=== PATIENT | female | born 1940 | race Caucasian/White ===

== ENCOUNTER 2017-07-29 10:15 | Observation (INO) | payer MEDICARE, OTHER ==
[~2017-07-29] VITALS: Ht 152.4 cm; Wt 74.9 kg
[~2017-07-29 10:15] MED LIST: AUGMENTIN 500 M1 TAB PO; PRILOSEC20 M1 PO; PRINIVIL10 MG PO; PRINZIDE 12.5 M1 TAB PO; SEE LIST; SIMVASTATIN5 MG PO; ZOCOR 20MG20 MG PO
[2017-07-29 13:20] VITALS: BP 172/66; PULSE 83; TEMP 98.3
[2017-07-29 15:38] VITALS: BP 146/63; PULSE 88; TEMP 97.7
[2017-07-29 21:14] VITALS: BP 133/55; PULSE 75
[2017-07-29 23:55] VITALS: BP 159/58; PULSE 80; TEMP 98
[2017-07-30 07:58] VITALS: BP 146/64; PULSE 80; TEMP 98.6
[2017-07-30 12:58] VITALS: BP 127/54; PULSE 62; TEMP 97.6
[2017-07-30 16:22] VITALS: BP 129/63; PULSE 61; TEMP 97.6
[2017-07-30 20:55] VITALS: BP 138/54; PULSE 57; TEMP 98
[2017-07-31 01:01] VITALS: BP 151/70; PULSE 76; TEMP 98.2
[2017-07-31 03:39] VITALS: BP 171/81; PULSE 83; TEMP 98.1
[2017-07-31 07:37] VITALS: BP 178/72; PULSE 71; TEMP 97.5
[2017-07-31] MEDS ORDERED: FLEXERIL 1010 MG/TAB PO (10:48)
[2017-07-31] MEDS ORDERED: ULTRAM 50MG TAB50 MG PO (10:49)
== END 2017-07-31 12:01 | disposition home or self-care (01) ==
LOC: COL.ER 10:15 → MEDICAL 12:17
DX: M54.89 Other dorsalgia (principal); I10 Essential (primary) hypertension; K21.9 Gastro-esophageal reflux disease without esophagitis
CPT/HCPCS: 99239; G0378; G8978-GP; G8979-GP; G8987-GO; G8988-GO; J1650; J1885; J2060; J2270; J2405; J7030; J7040

== ENCOUNTER 2019-01-17 18:02 | Emergency (ER) | payer MEDICARE, OTHER ==
[~2019-01-17] VITALS: Ht 152.4 cm; Wt 77.3 kg
[~2019-01-17 18:02] MED LIST changes: +FLEXERIL 1010 MG/TAB PO; +ULTRAM 50MG TAB50 MG PO
[2019-01-17 18:04] VITALS: TEMP 98.5
[2019-01-17] MEDS ORDERED: XALATAN EYE DROPS OU (18:32)
[2019-01-17 18:33] LABS: BASO % 0.4 % (0.0-2.0); EOS % 0.1 % (0-4.0); GRAN % 78.2 % (42.2-75.2); HEMATOCRIT 42.4 % (37.0-47.0); HEMOGLOBIN 14.3 g/dl (12.5-16.0); LYMPH # 1.2 (1.2-3.4); LYMPH % 13.4 % (20.0-51.0); MEAN CELL VOLUME 86 fl (80.0-100.0); MEAN CORPUSCULAR HEMOGLOBIN 29 pg (27.0-31.0); MEAN CORPUSCULAR HGB CONC 34 g/dl (33.0-37.0); MEAN PLATELET VOLUME 9.6 fl (7.4-10.4); MONO # 0.7 (0.1-0.6); MONO % 7.6 % (1.7-9.3); PLATELET COUNT 240 K/mm3 (130-400); RED BLOOD COUNT 4.91 M/mm3 (4.10-5.30); REDCELL DISTRIBUTION WIDTH-CV 12.5 % (11.5-14.5)
[2019-01-17] MEDS ORDERED: TIMOLOL MALEATE5 M1 OP (18:33)
[2019-01-17 18:51] LABS: ALANINE AMINOTRANSFERASE 18 U/L (9-52); ALBUMIN 4.3 gm/dL (3.5-5.0); ALKALINE PHOSPHATASE 107 U/L (50-136); ANION GAP 7 mmol/L (7-16); AST,SGOT 19 U/L (15-37); BILIRUBIN,TOTAL 0.9 mg/dL (0.0-1.0); BLOOD UREA NITROGEN 8 mg/dL (7-17); C-REACTIVE PROTEIN 3.2 mg/dL (0.0-0.9); CARBON DIOXIDE 28 mmol/L (22-30); CHLORIDE 100 mmol/L (98-107); CREATININE, serum 0.52 (0.52-1.25); GLUCOSE 139 mg/dL (74-106); LIPASE 69 U/L (23-300); POTASSIUM 3.5 mmol/L (3.4-5.0); SODIUM 136 mmol/L (137-145); TOTAL PROTEIN 7.8 gm/dL (6.4-8.2)
[2019-01-17 19:01] LABS: COLLECTION METHOD CLEAN CATCH
[2019-01-17 19:03] LABS: TROPONIN-I < 0.012 ng/mL (0.000-0.035)
[2019-01-17 19:09] LABS: PH 5 (5-8); SQUAMOUS EPITHELIAL 0-2 /hpf; URINE APPEARANCE Hazy; URINE BACTERIA None Seen /hpf; URINE BILIRUBIN Negative (NEGATIVE); URINE BLOOD 1+ (NEGATIVE); URINE COLOR Yellow; URINE GLUCOSE Negative (NEGATIVE); URINE KETONE Trace (NEGATIVE); URINE LEUKOCYTE ESTERASE Negative (NEGATIVE); URINE NITRATE Negative (NEGATIVE); URINE PROTEIN(semi-quant) Negative (NEGATIVE); URINE RBC 0-2 /hpf; URINE UROBILINOGEN Negative (NEGATIVE)
[2019-01-17 19:30] VITALS: BP 176/86
[2019-01-17] MEDS ORDERED: NORVASC 5MG5 MG/TAB PO (20:10)
[2019-01-17] MEDS ORDERED: ZOFRAN 4MG T4 MG/TAB PO (20:10)
[2019-01-17 20:20] VITALS: PULSE 94
== END 2019-01-17 20:20 | disposition home or self-care (01) ==
LOC: COL.ER 18:02
PROVIDERS: Emergency Medicine
DX: R19.7 Diarrhea, unspecified (principal); R11.2 Nausea with vomiting, unspecified; I10 Essential (primary) hypertension
CPT/HCPCS: J2405; J7030

== ENCOUNTER 2019-02-19 12:05 | Observation (INO) | payer MEDICARE, OTHER ==
[~2019-02-19] VITALS: Ht 149.9 cm; Wt 77.2 kg
[~2019-02-19 12:05] MED LIST changes: +NORVASC 5MG5 MG/TAB PO; +TIMOLOL MALEATE5 M1 OP; +XALATAN EYE DROPS OU; +ZOFRAN 4MG T4 MG/TAB PO
[2019-02-19 12:54] LABS: ALANINE AMINOTRANSFERASE < 6 U/L (9-52); ALBUMIN 4.3 gm/dL (3.5-5.0); ALKALINE PHOSPHATASE 100 U/L (50-136); ANION GAP 11 mmol/L (7-16); AST,SGOT 26 U/L (15-37); BASO % 0.5 % (0.0-2.0); BILIRUBIN,TOTAL 0.8 mg/dL (0.0-1.0); BLOOD UREA NITROGEN 10 mg/dL (7-17); CALCIUM 9.2 mg/dL (8.4-10.2); CARBON DIOXIDE 28 mmol/L (22-30); CHLORIDE 102 mmol/L (98-107); CREATININE, serum 0.51 (0.52-1.25); EOS % 0.4 % (0-4.0); GLUCOSE 145 mg/dL (74-106); GRAN # 6.3 (1.4-6.5); GRAN % 73.5 % (42.2-75.2); HEMATOCRIT 38.5 % (37.0-47.0); HEMOGLOBIN 13.1 g/dl (12.5-16.0); LIPASE 78 U/L (23-300); LYMPH # 1.5 (1.2-3.4); LYMPH % 17.8 % (20.0-51.0); MEAN CELL VOLUME 86 fl (80.0-100.0); MEAN CORPUSCULAR HEMOGLOBIN 29 pg (27.0-31.0); MEAN CORPUSCULAR HGB CONC 34 g/dl (33.0-37.0); MEAN PLATELET VOLUME 9.8 fl (7.4-10.4); MONO # 0.7 (0.1-0.6); MONO % 7.6 % (1.7-9.3); PLATELET COUNT 230 K/mm3 (130-400); POTASSIUM 3.6 mmol/L (3.4-5.0); REDCELL DISTRIBUTION WIDTH-CV 12.5 % (11.5-14.5); SODIUM 141 mmol/L (137-145); TOTAL PROTEIN 7.8 gm/dL (6.4-8.2)
[2019-02-19 13:06] LABS: INR 1.1 (0.8-3.0); PROTHROMBIN TIME 12.5 SECONDS (9.7-12.8)
[2019-02-19 13:08] LABS: TROPONIN-I < 0.012 ng/mL (0.000-0.035)
[2019-02-19 17:41] VITALS: BP 158/71; PULSE 81; TEMP 98.3
--- NOTE | 2019-02-19 18:29 | NUR ---
Pt arrived to room 305 at this time. She is A/O x3. Her breathing is even and unlabored on RA. Pt denies chest pain or palpations at this time. She reports her headache has improved. No N/V present. Tele monitor in place. Family at bedside, POC discussed with patient who verbalizes understanding. IV to her R hand intact. No needs at this time. Call light within reach. Will continue to monitor.
[2019-02-19 19:02] VITALS: BP 148/67; PULSE 84; TEMP 98.5
--- NOTE | 2019-02-19 21:19 | NUR ---
Completed assessment and medication adminsitration; PT tolerated all cares and questions; PT A&Ox4, BS active x4, HRRR, IND AMB stable in room, voiding, observation with trending triponins; No further assessed concerns or complaints at time of exit; PT able to return to comfortable position in bed with personal items and call light within reach; Will continue to monitor. CDA
[2019-02-19 23:13] VITALS: BP 153/66; PULSE 85; TEMP 98.6
--- NOTE | 2019-02-20 02:00 | NUR ---
PT resting intermittently in bed; PT states that the bed is not comfortable; No further assessed or reported needs; No report of acute chest pain or discomfort; Will continue to monitor. CDA
[2019-02-20 03:16] VITALS: BP 149/67; PULSE 77; TEMP 99
--- NOTE | 2019-02-20 07:15 | NUR ---
Report given to YOSI Pool; No significant changes or concerns at time of shift change. CDA
[2019-02-20 07:26] VITALS: BP 142/62; PULSE 82; TEMP 98.4
--- NOTE | 2019-02-20 07:27 | NUR ---
Up walking in the room while rounding. No pain or needs reported. The call light is in place and the patient is ordering breakfast.
--- NOTE | 2019-02-20 07:29 | NUR ---
Report received from YOSI Gomez. Rounded on pt. Pt is currently sitting on the side of the bed. No complaints or requests at this time. Pt is planning on ordering breakfast. Call light in reach. Will continue to monitor.
[2019-02-20 08:15] LABS: BASO # 0.1 (0.0-0.2); BASO % 0.8 % (0.0-2.0); EOS # 0.1 (0.0-0.7); EOS % 0.8 % (0-4.0); GRAN # 4.8 (1.4-6.5); GRAN % 62.1 % (42.2-75.2); HEMATOCRIT 38.9 % (37.0-47.0); HEMOGLOBIN 12.7 g/dl (12.5-16.0); LYMPH # 2.1 (1.2-3.4); LYMPH % 27.5 % (20.0-51.0); MEAN CELL VOLUME 88 fl (80.0-100.0); MEAN CORPUSCULAR HEMOGLOBIN 29 pg (27.0-31.0); MEAN CORPUSCULAR HGB CONC 33 g/dl (33.0-37.0); MEAN PLATELET VOLUME 9.6 fl (7.4-10.4); MONO # 0.7 (0.1-0.6); MONO % 8.5 % (1.7-9.3); PLATELET COUNT 229 K/mm3 (130-400); RED BLOOD COUNT 4.44 M/mm3 (4.10-5.30); REDCELL DISTRIBUTION WIDTH-CV 12.5 % (11.5-14.5)
[2019-02-20 08:46] LABS: CALCIUM 9.1 mg/dL (8.4-10.2); CHOLESTEROL RISK RATIO 6.9; CREATININE, serum 0.55 (0.52-1.25); POTASSIUM 3.7 mmol/L (3.4-5.0)
--- NOTE | 2019-02-20 09:57 | NUR ---
This nurse reduced patients O2 to 1L via NC.
--- NOTE | 2019-02-20 10:32 | NUR ---
QUE met with the patient to discuss a discharge plan. The patient lives alone in [place]. The patient does not use any DME and reports independence with ADLs. The patient's PCP is Dr. Chloe Pizarro and the patient receives her medication from [facility] pharmacy. The patient reports no difficulties obtaining her medications. The patient does not have advanced directives in the EMR but reports that she does have them completed. The patient plans to return home upon discharge. There are no additional needs at this time.
[2019-02-20 11:03] VITALS: BP 142/65; PULSE 75; TEMP 98.1
--- NOTE | 2019-02-20 11:15 | NUR ---
Visited, listened, and provided spiritual care to the patient.
[2019-02-20 12:07] LABS: ARTERIAL BLOOD GAS HCO3 27.7 meq/L (22-26); ARTERIAL BLOOD GAS PCO2 39.8 mmHg (35-45); ARTERIAL BLOOD GAS PO2 78.5 mmHg (80-100); ARTERIAL BLOOD GAS pH 7.46 (7.35-7.45)
[2019-02-20 12:08] LABS: ARTERIAL BLD GAS O2 SATURATION 95.4 % (92-100); ARTERIAL BLD GAS TCO2 CT 29; ARTERIAL BLOOD GAS BASE EXCESS 3.7 (-2-2)
[2019-02-20] MEDS ORDERED: PRILOSEC10 MG PO (12:19)
--- NOTE | 2019-02-20 13:00 | NUR ---
This nurse reduced patients O2 to 0 L
[2019-02-20] MEDS ORDERED: ASPI325T6 PO (15:10)
[2019-02-20] MEDS ORDERED: TOPROL XL 50MG50 MG PO (15:11)
--- NOTE | 2019-02-20 16:21 | NUR ---
Discharge education completed with the patient and her daughter. All questions answered per this nurse. Escorted out via wheelchair.
== END 2019-02-20 16:24 | disposition home or self-care (01) ==
LOC: COL.ER 12:05 → PEDS 14:57 → MEDICAL 17:39
PROVIDERS: Emergency Medicine; Nurse Practitioner Family; ADMIT Family Medicine
DX: R07.89 Other chest pain (principal); I16.0 Hypertensive urgency; R73.03 Prediabetes; E78.5 Hyperlipidemia, unspecified; M19.90 Unspecified osteoarthritis, unspecified site; G89.29 Other chronic pain; M54.5 Low back pain; Z79.82 Long term (current) use of aspirin; Z82.49 Family history of ischemic heart disease and other diseases of the circulatory system; Z82.3 Family history of stroke; Z88.1 Allergy status to other antibiotic agents; Z88.8 Allergy status to other drugs, medicaments and biological substances; Z91.018 Allergy to other foods; I08.1 Rheumatic disorders of both mitral and tricuspid valves
CPT/HCPCS: 99222-AI; 99239; G0378; J1650; J2270; J7030; Q9967

== ENCOUNTER 2021-11-01 09:05 | Outpatient (CLI) | payer MEDICARE, OTHER ==
[~2021-11-01] VITALS: Ht 149.9 cm; Wt 73.0 kg
[~2021-11-01 09:05] MED LIST changes: +ASPI325T6 PO; +PRILOSEC10 MG PO; +TOPROL XL 50MG50 MG PO
[2021-11-01 09:47] VITALS: BP 193/104; PULSE 83; TEMP 98.3
[2021-11-01] MEDS ORDERED: ASPIRIN E.C. 8181 MG PO (10:04)
[2021-11-01] MEDS ORDERED: CURCUMIN95% PO (10:05)
[2021-11-01] MEDS ORDERED: TIMOLOL MALEATE5 M1 OP (10:06)
[2021-11-01] MEDS ORDERED: B-12 250 MCG PO (10:07)
[2021-11-01] MEDS ORDERED: THE MEDICINE S200 M2 PO (10:07)
[2021-11-01] MEDS ORDERED: VITAMINC1000TA PO (10:08)
[2021-11-01] MEDS ORDERED: MASON NATURAL2000 IU PO (10:08)
[2021-11-01] MEDS ORDERED: ZETIA 10MG TAB10 MG PO (10:10)
[2021-11-01] MEDS ORDERED: ZESTRIL40 MG PO (10:11)
[2021-11-01] MEDS ORDERED: NATURAL POTASS595 MG PO (10:11)
[2021-11-01] MEDS ORDERED: NATURAL E400 IU PO ×2 (10:11→10:13)
[2021-11-01] MEDS ORDERED: MOTRIN 200200 MG/TAB PO (10:12)
[2021-11-01] MEDS ORDERED: ZANAFLEX CAPSULE2 MG PO (10:13)
[2021-11-01 10:55] VITALS: BP 176/84; PULSE 83
--- NOTE | 2021-11-01 10:55 | NUR ---
DC instructions reviewed with pt, she expressed understanding. Dressing to loop insert site remains clean, dry and intact. She is assisted out to family's car by wheelchair with belongings.
== END 2021-11-01 10:53 | disposition home or self-care (01) ==
LOC: COL.CAR 09:05
DX: R00.2 Palpitations (principal); I10 Essential (primary) hypertension; M19.90 Unspecified osteoarthritis, unspecified site; E78.5 Hyperlipidemia, unspecified; R73.01 Impaired fasting glucose; K21.9 Gastro-esophageal reflux disease without esophagitis; I08.1 Rheumatic disorders of both mitral and tricuspid valves; N39.0 Urinary tract infection, site not specified; E78.2 Mixed hyperlipidemia; H34.8110 Central retinal vein occlusion, right eye, with macular edema; Z98.51 Tubal ligation status; Z79.82 Long term (current) use of aspirin; Z79.899 Other long term (current) drug therapy; Z82.3 Family history of stroke
CPT/HCPCS: 27886; C1764

== ENCOUNTER 2022-02-02 07:57 | Emergency (ER) | payer MEDICARE ==
[~2022-02-02] VITALS: Ht 149.9 cm; Wt 71.8 kg
[~2022-02-02 07:57] MED LIST changes: +ASPIRIN E.C. 8181 MG PO; +B-12 250 MCG PO; +B-12 500 MCG PO; +CURCUMIN95% PO; +FOLIC ACID0.4 MG PO; +IFEREX 150150 MG PO; +MASON NATURAL2000 IU PO; +MOTRIN 200200 MG/TAB PO; +NATURAL E400 IU PO; +NATURAL POTASS595 MG PO; +THE MEDICINE S200 M2 PO; +VITAMIN C500 MG PO; +VITAMINC1000TA PO; +VTAMINC250TA; +ZANAFLEX CAPSULE2 MG PO; +ZESTRIL40 MG PO; +ZETIA 10MG TAB10 MG PO
[2022-02-02 08:00] VITALS: TEMP 98.5
[2022-02-02 08:48] VITALS: BP 163/78; PULSE 84
--- NOTE | 2022-02-02 15:47 | NUR ---
SW informed that patient was in ED and stated that she now felt as though she needed rehab after the surgery she previously had a few days ago. SW reviewed documentation to see when patient discharge and was services were recommended at that time. SW discovered that patient did not have surgery at [facility], but at the surgical center. Patient called to provide information on HH services that could be utilized privately paid, or reaching to the surgical center staff on Friday to obtain further documentation or information to be able to obtain further therapy services. Patient informed that due to not being admitted/discharged at this facility a physican ref. could not be provided. Patient and family understood that they would need to reach out to HH agencies, PCP or surgical center for follow up. Nothing further.
[2022-02-02] MEDS ORDERED: APRESOLINE50 MG PO (21:56)
[2022-02-02] MEDS ORDERED: NORCO 325 MG-51 TAB PO (21:57)
[2022-02-02] MEDS ORDERED: COREG 6.256.25 MG/TA PO (21:58)
[2022-02-02] MEDS ORDERED: PRILOSEC10 MG PO (22:05)
== END 2022-02-02 08:55 | disposition home or self-care (01) ==
LOC: COL.ER 07:57
DX: M62.838 Other muscle spasm (principal); Z79.899 Other long term (current) drug therapy

== ENCOUNTER 2022-02-02 21:26 | Observation (INO) | payer MEDICARE ==
[~2022-02-02] VITALS: Ht 151.1 cm; Wt 75.7 kg
[2022-02-02 21:49] LABS: BASO % 0.5 % (0.0-2.0); EOS # 0.1 K/mm3 (0.0-0.7); EOS % 1.1 % (0.0-4.0); GRAN # 5.7 K/mm3 (1.4-6.5); HEMOGLOBIN 10.5 g/dl (12.5-16.0); LYMPH % 22.7 % (20.0-51.0); MEAN CELL VOLUME 84 fl (80.0-100.0); MEAN CORPUSCULAR HEMOGLOBIN 29 pg (27-31); MEAN CORPUSCULAR HGB CONC 35 g/dl (33.0-37.0); MEAN PLATELET VOLUME 10.2 fl (7.4-10.4); MONO # 0.9 K/mm3 (0.1-0.6); MONO % 10.4 % (1.7-9.3); PLATELET COUNT 229 K/mm3 (130-400); REDCELL DISTRIBUTION WIDTH-CV 12.4 % (11.5-14.5)
[2022-02-02 21:53] LABS: HEMATOCRIT 30.3 % (37.0-47.0)
[2022-02-02] MEDS ORDERED: APRESOLINE50 MG PO (21:56)
[2022-02-02] MEDS ORDERED: NORCO 325 MG-51 TAB PO (21:57)
[2022-02-02] MEDS ORDERED: COREG 6.256.25 MG/TA PO (21:58)
[2022-02-02] MEDS ORDERED: PRILOSEC10 MG PO (22:05)
[2022-02-02 22:07] LABS: ALBUMIN 3.2 gm/dL (3.4-4.8); BILIRUBIN,TOTAL 0.6 mg/dL (0.2-1.2); C-REACTIVE PROTEIN 14.6 mg/dL (0.00-0.50); CALCIUM 8.5 mg/dL (8.4-10.2); CREATININE, serum 0.76 mg/dL (0.57-1.11); POTASSIUM 3.6 mmol/L (3.5-4.5); TOTAL PROTEIN 6.6 gm/dL (6.2-8.1)
[2022-02-02 22:29] LABS: COLLECTION METHOD CLEAN CATCH
[2022-02-02 22:34] LABS: PH 6 (5-8); SQUAMOUS EPITHELIAL 0-2 /hpf (0-10); URINE APPEARANCE Clear (CLEAR/HAZY); URINE BACTERIA None Seen /hpf (NONE SEEN); URINE BILIRUBIN Negative (NEGATIVE); URINE BLOOD Negative (NEGATIVE); URINE COLOR Yellow (YELLOW); URINE GLUCOSE Negative (NEGATIVE); URINE KETONE Negative (NEGATIVE); URINE LEUKOCYTE ESTERASE 1+ (NEGATIVE); URINE NITRATE Negative (NEGATIVE); URINE PROTEIN(semi-quant) Negative (NEGATIVE); URINE UROBILINOGEN Negative (NEGATIVE)
[2022-02-02 22:54] VITALS: BP 148/77; PULSE 105; TEMP 98.2
[2022-02-02 23:32] VITALS: BP 148/67; PULSE 95; TEMP 97.9
[2022-02-03 00:04] VITALS: BP 148/67; PULSE 95; TEMP 97.9
[2022-02-03 03:50] VITALS: BP 136/60; PULSE 96; TEMP 98.1
--- NOTE | 2022-02-03 06:58 | NUR ---
PT ABLE TO SLEEP AFTER MORPHINE GIVEN @0250, UP TO RESTROOM WITH ASSIST OF 1 USING WALKER, SALINE LOCK IN RFA, PATENT AND SECURE.
[2022-02-03 11:00] VITALS: BP 106/48; PULSE 88; TEMP 99.1
--- NOTE | 2022-02-03 11:31 | NUR ---
SW met with patient to complete intake. Patient is in the hospital due to a recent surgery at the surgical center and unable to manage care since surgery. Patient states that she lives alone and DPOA/HC is her daughter Juli [phone]. Patient states that she uses a walker, and is independent with ADL's patient provides that she does not utilize and HH services at this time. PCP is Dr. Wright and pharmacy is [facility]. Patient states that if going to a nursing facility her preference is [facility]. SW will referral information to [facility]. SW will continue to follow. DC plan: home with HH vs [facility]
--- NOTE | 2022-02-03 13:25 | NUR ---
Received report from shift supervisor. Patient here for pain management for recent hip surgery. VSS. Assessment performed. AM meds administered. Patient ambulated to bathroom and back. Patient tolerated well. Patient denies any pain at this time. ICE pack applied. Call light near.
[2022-02-03 15:45] VITALS: BP 140/64; PULSE 92; TEMP 98.4
--- NOTE | 2022-02-03 20:00 | NUR ---
PATIENT IS RESTING IN BED.PATIENT REPORTS PAIN,MEDICATION GIVEN PER MAR.PATIENT TAKES PILLS WHOLE WITH NO TROUBLE.SAFETY MEASURES IN PLACE.MO OTHER NEEDS AT THISTIME.
[2022-02-03 20:48] VITALS: BP 117/45; PULSE 98; TEMP 98.3
[2022-02-04] VITALS (8 sets, daily range): BP systolic 126–180; BP diastolic 46–75; PULSE 86–97; TEMP 97.7–98.8
--- NOTE | 2022-02-04 05:41 | NUR ---
PATIENT SLEPT THROUGH THE NIGHT.NO CONCERNS AT THIS TIME.
[2022-02-04 05:51] LABS: MEAN CELL VOLUME 87 fl (80.0-100.0); MEAN CORPUSCULAR HGB CONC 34 g/dl (33.0-37.0); MEAN PLATELET VOLUME 10.1 fl (7.4-10.4); PLATELET COUNT 242 K/mm3 (130-400); RED BLOOD COUNT 3.18 M/mm3 (4.10-5.30); REDCELL DISTRIBUTION WIDTH-CV 12.8 % (11.5-14.5)
[2022-02-04 05:54] LABS: HEMATOCRIT 27.6 % (37.0-47.0); HEMOGLOBIN 9.3 g/dl (12.5-16.0); MEAN CORPUSCULAR HEMOGLOBIN 29 pg (27-31)
[2022-02-04 06:09] LABS: CALCIUM 8.1 mg/dL (8.4-10.2); CREATININE, serum 0.64 mg/dL (0.57-1.11); POTASSIUM 3.6 mmol/L (3.5-4.5)
--- NOTE | 2022-02-04 06:45 | NUR ---
awake resting in bed, bedside shift report received from YOSI Abel, denies needs at this time
--- NOTE | 2022-02-04 07:40 | NUR ---
ADVERTISING LAYOUT WORKER in to assist her with getting up to bathroom and then to sink for am care
--- NOTE | 2022-02-04 08:00 | NUR ---
assisted out of straight back chair after am careand ambulated over and into recliner,
--- NOTE | 2022-02-04 08:50 | NUR ---
c/o pain, medicated with hydrocodone 5mg 1 tab, and given remainder of am meds, denies other needs
--- NOTE | 2022-02-04 09:56 | NUR ---
First visit from the leather piece inspector. No needs right now.
--- NOTE | 2022-02-04 10:10 | NUR ---
remains up in chair, states pain is better
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
--- NOTE | 2022-02-04 11:00 | NUR ---
spoke with Dr Griffin regarding patient's increasing pain, will obtain xray of right hip,
--- NOTE | 2022-02-04 11:08 | NUR ---
Dr Griffin and care team in to see patient, criminal justice social worker will talk with daughter regarding plan
--- NOTE | 2022-02-04 12:10 | NUR ---
is back in bed waiting for xray, when asked her about her pain she states, I am hurting, will provide pain pill when time appropriate
--- NOTE | 2022-02-04 12:25 | NUR ---
MOTOR EQUIPMENT COMMANDING OFFICER in to assist her up to bathroom, patient was assisted up to side of bed and then stood at side of bed without assistance, ambulated into bathroom and does moan and grimace in pain with ambulation, medicated with hydrocodone 5mg 1 tab
--- NOTE | 2022-02-04 12:50 | NUR ---
was assisted back to bed by YOSI Cole, he states she stood up from commode, she states after she gets back to bed that she can't move her right leg even after walking from bathroom to bed, does c/o pain when assisted with lying back in bed, radiology staff states they will be up within an hour for xray of hip
--- NOTE | 2022-02-04 13:38 | NUR ---
in bed and crying and moaning with pain, medicated with morphine 2mg slow IV, radiology now in to take xray of right hip
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
--- NOTE | 2022-02-04 14:16 | NUR ---
had small amount to eat, now resting with eyes closed and just wants to sleep
--- NOTE | 2022-02-04 15:11 | NUR ---
physical therapy was in and worked with patient and she ambulated to the door and back to bed, also into bathroom and voided, [id number] in to visit, patient is not c/o increased pain at this time, Dr Griffin has informed patient her xray was ok
--- NOTE | 2022-02-04 16:16 | NUR ---
rn social work in to visit with patient and her daughter, patient is resting in bed quietly at this time
--- NOTE | 2022-02-04 16:30 | NUR ---
Development Lead met with patient and patient's daughter, Juli to discuss discharge planning. SW explained that patient is observation status and would not qualify to go to SNF under Medicare, meaning SNF would be private pay. Patient is frustrated by this but verbalized understanding. Patient would like referrals sent to [facility] and [facility]. SW also discussed referral to [facility] however patient has concerns about tolerating three hours of therapy daily. SW faxed referrals to [facility] and [facility] and also gave referral to [facility]. Discharge Plan: SNF private pay
--- NOTE | 2022-02-04 16:31 | NUR ---
requesting kpad for back/sciatica and will provide, is now smiling and denies other needs, daughter at bedside
--- NOTE | 2022-02-04 16:53 | NUR ---
c/o sciatic pain now, medicated with hydrocodone 5mg 1 tab and provided k pad, repositioned for comfort
--- NOTE | 2022-02-04 17:26 | NUR ---
states she is feeling better, after pain pill, kpad and being repostioned,
--- NOTE | 2022-02-04 18:06 | NUR ---
appears to be sleeping, in bed with eyes closed, resp quiet and easy
--- NOTE | 2022-02-04 18:52 | NUR ---
bedside shift report given to YOSI Stover
--- NOTE | 2022-02-04 21:42 | NUR ---
PT IN BED. IS ALERT AND ORIENTED X4. REPORTS RT HIP/BACK PAIN, MEDICATED WITH HS MEDS INCLUDING NORCO FOR PAIN. HAS INT TO RFA, FLUSHES WELL. RT HIP INCISION WITH LAURA DRSG ON. PT USING KPAD AND ICE PACK FOR "SCIATICA" PAIN. UP WITH ASSIST TO BATHROOM AND WALKER. DOES WELL.
[2022-02-05 03:46] VITALS: BP 154/67; PULSE 97; TEMP 98.3
--- NOTE | 2022-02-05 06:06 | NUR ---
PT UP TO BATHROOM WITH ASSIST, BACK TO BED. MEDICATED WITH NORCO 1 TAB FOR RT HIP/BACK PAIN.
--- NOTE | 2022-02-05 06:45 | NUR ---
Report received, assumed care for day shift.
[2022-02-05 07:14] VITALS: BP 159/73; PULSE 94; TEMP 98.9
--- NOTE | 2022-02-05 08:00 | NUR ---
Assessment complete. Sitting up in chair waiting on breakfast. A&Ox3. Denies pain/nausea/shortness of breath. VS remain stable. INT to right forearm flushes well with no redness/drainage. Dressing to right hip CDI. Patient states that dressing is to be removed today-assisted with removal. Incision without redness/drainage. Steri strips in place. Plan of care discussed for pain control/PT/meds/calling for questions/concerns. Verbalizes understanding. Call light in reach. Will monitor.
--- NOTE | 2022-02-05 09:54 | NUR ---
Patient c/o not being able to breath-states she is having a hard time breathing through her nose. O2 saturation 96% on room air. Noted to have some congestion. States she usually uses saline nose spray PRN. EVON Goel notified and new orders placed. Will monitor.
--- NOTE | 2022-02-05 10:45 | NUR ---
Dr. Bedolla called stating patient had called the office stating she was in severe pain in her back. Dr Bedolla requesting Hospitalist place orders for CT of lumbar spine-Spoke with EVON Goel. This nurse went to room to administer pain medications and patient states she is not in pain. States she feels better now than she has the entire stay. Clement returned. Instructed to call if pain returns/worsens. Verbalizes understanding. Call light in reach. Will monitor.
[2022-02-05 11:33] VITALS: BP 142/55; PULSE 87; TEMP 97.8
[2022-02-05] MEDS ORDERED: COLACE 100100 MG/CAP PO (11:46)
[2022-02-05] MEDS ORDERED: ASPIRIN 32325 MG/TAB PO (11:46)
[2022-02-05] MEDS ORDERED: Remove Patch TD (11:46)
[2022-02-05] MEDS ORDERED: BLUE-EMU LIDOC1 EACH TP (11:46)
[2022-02-05] MEDS ORDERED: MIRALAX PA17 GM/Dose PO (11:47)
[2022-02-05] MEDS ORDERED: SENNA-LAX8.6 MG PO (11:47)
[2022-02-05] MEDS ORDERED: AYR SALINE MIST50 ML NS (11:47)
[2022-02-05] MEDS ORDERED: NORCO 325 MG-51 TAB PO (11:51)
--- NOTE | 2022-02-05 11:59 | NUR ---
C/O pain to right buttock/back-described as sharp intermittent pains-rated 8/10 on pain scale. [place] given per dr order. Lidocaine patch placed per order as well. Will monitor.
--- NOTE | 2022-02-05 13:15 | NUR ---
Spoke with patient about plan for discharge to [facility] at 1400. Instructed we would be back to room in 15 minutes to assist with getting dressed. Verbalizes understanding.
--- NOTE | 2022-02-05 14:15 | NUR ---
INT DCd to right wrist cath intact. Discharge packet provided to family with instructions to give to nurse at [facility]. Escorted off floor via wheelchair accompanied by JAYSON Nichols and Daughter. Denies questions/concerns.
--- NOTE | 2022-02-05 14:23 | NUR ---
Report called to YOSI Emesron at [facility].
--- NOTE | 2022-02-05 15:20 | NUR ---
Vp Hr Diversity attended clinical rounds with the team and patient stated that after thinking about things, her first preference for SNF would actually be [facility], despite telling QUE yesterday that she did not want referral sent to [facility]. Patient stated her preferences now are 1) [facility] 2) [facility] 3) [facility]. QUE contacted Kori at [facility] and faxed referral. Kori had her team review referral and they can accept patient today, private pay. Kori advised she spoke with patient's daughter, Juli about the cost. QUE met with patient and had Juli on speaker phone. Juli reviewed cost with patient, who is agreeable. QUE advised patient and Juli that [facility] did not have transportation today. Juli is agreeable to transport patient at 1400 and patient is comfortable with this plan. QUE faxed covid results and discharge orders to Kori at [facility]. Discharge Plan: [facility] SNF (private pay)
[2022-02-06] MEDS ORDERED: VALIUM 5MG T5 MG/TAB PO (01:31)
[2022-02-06] MEDS ORDERED: PERCOCET 325 MG1 TA2 PO (01:31)
== END 2022-02-05 14:26 | disposition home or self-care (01) ==
LOC: COL.ER 21:26 → SURG 21:49
PROVIDERS: Emergency Medicine; ADMIT Internal Medicine
DX: M54.50 Low back pain, unspecified (principal); M25.551 Pain in right hip; K59.00 Constipation, unspecified; I10 Essential (primary) hypertension; E78.5 Hyperlipidemia, unspecified; M19.90 Unspecified osteoarthritis, unspecified site; H40.9 Unspecified glaucoma; G89.29 Other chronic pain; Z20.822 Contact with and (suspected) exposure to COVID-19; Z79.899 Other long term (current) drug therapy; Z96.641 Presence of right artificial hip joint; Z79.82 Long term (current) use of aspirin
CPT/HCPCS: G0378; J2060; J2270; J3360; J7030

== ENCOUNTER 2022-02-05 23:33 | Emergency (ER) | payer MEDICARE ==
[~2022-02-05 23:33] MED LIST changes: +APRESOLINE50 MG PO; +ASPIRIN 32325 MG/TAB PO; +AYR SALINE MIST50 ML NS; +BLUE-EMU LIDOC1 EACH TP; +COLACE 100100 MG/CAP PO; +COREG 6.256.25 MG/TA PO; +MIRALAX PA17 GM/Dose PO; +NORCO 325 MG-51 TAB PO; +Remove Patch TD; +SENNA-LAX8.6 MG PO
[2022-02-05 23:38] VITALS: TEMP 98.2
[2022-02-06] MEDS ORDERED: VALIUM 5MG T5 MG/TAB PO (01:31)
[2022-02-06] MEDS ORDERED: PERCOCET 325 MG1 TA2 PO (01:31)
[2022-02-06 01:45] VITALS: BP 191/93; PULSE 86
== END 2022-02-06 01:45 | disposition home or self-care (01) ==
LOC: COL.ER 23:33
DX: M54.10 Radiculopathy, site unspecified (principal)
CPT/HCPCS: J2270; J3360

== ENCOUNTER → 2022-02-23 | Outpatient (CLI) | payer MEDICARE ==
[~2022-02-23] MED LIST changes: +PERCOCET 325 MG1 TA2 PO; +VALIUM 5MG T5 MG/TAB PO
[2022-02-23 13:18] LABS: CALCIUM 8.8 mg/dL (8.4-10.2); CREATININE, serum 0.6 mg/dL (0.57-1.11); MAGNESIUM 2.1 mg/dL (1.6-2.6); POTASSIUM 4.2 mmol/L (3.5-4.5)
[2022-02-23 13:22] LABS: BASO # 0.1 K/mm3 (0.0-0.2); EOS # 0.2 K/mm3 (0.0-0.7); EOS % 2.6 % (0.0-4.0); GRAN # 3.8 K/mm3 (1.4-6.5); GRAN % 65.3 % (42.2-75.2); HEMATOCRIT 35.5 % (37.0-47.0); HEMOGLOBIN 10.9 g/dl (12.5-16.0); LYMPH # 1.2 K/mm3 (1.2-3.4); LYMPH % 21.5 % (20.0-51.0); MEAN CELL VOLUME 93 fl (80.0-100.0); MEAN CORPUSCULAR HEMOGLOBIN 29 pg (27-31); MEAN CORPUSCULAR HGB CONC 31 g/dl (33.0-37.0); MEAN PLATELET VOLUME 9.6 fl (7.4-10.4); MONO # 0.5 K/mm3 (0.1-0.6); MONO % 9.3 % (1.7-9.3); PLATELET COUNT 321 K/mm3 (130-400); RED BLOOD COUNT 3.82 M/mm3 (4.10-5.30); REDCELL DISTRIBUTION WIDTH-CV 13.2 % (11.5-14.5)
== END ==
LOC: ZCOL.LAB 08:00
PROVIDERS: Family Medicine
DX: I10 Essential (primary) hypertension (principal); K21.9 Gastro-esophageal reflux disease without esophagitis

== ENCOUNTER 2022-03-06 11:58 | Emergency (ER) | payer MEDICARE ==
[~2022-03-06] VITALS: Ht 149.9 cm; Wt 69.1 kg
[2022-03-06 12:09] VITALS: TEMP 98.5
[2022-03-06 12:19] LABS: BASO # 0.1 K/mm3 (0.0-0.2); BASO % 1.2 % (0.0-2.0); EOS # 0.1 K/mm3 (0.0-0.7); EOS % 1.9 % (0.0-4.0); GRAN # 3.3 K/mm3 (1.4-6.5); GRAN % 57.3 % (42.2-75.2); HEMOGLOBIN 11.2 g/dl (12.5-16.0); LYMPH # 1.7 K/mm3 (1.2-3.4); LYMPH % 28.4 % (20.0-51.0); MEAN CELL VOLUME 88 fl (80.0-100.0); MEAN CORPUSCULAR HEMOGLOBIN 28 pg (27-31); MEAN CORPUSCULAR HGB CONC 32 g/dl (33.0-37.0); MEAN PLATELET VOLUME 9.3 fl (7.4-10.4); MONO # 0.6 K/mm3 (0.1-0.6); MONO % 10.9 % (1.7-9.3); PLATELET COUNT 291 K/mm3 (130-400); RED BLOOD COUNT 3.96 M/mm3 (4.10-5.30); REDCELL DISTRIBUTION WIDTH-CV 12.7 % (11.5-14.5)
[2022-03-06 12:24] LABS: HEMATOCRIT 34.7 % (37.0-47.0)
[2022-03-06 12:37] LABS: ALANINE AMINOTRANSFERASE 12 U/L (0-55); ALBUMIN 3.7 gm/dL (3.4-4.8); ALKALINE PHOSPHATASE 109 U/L (40-150); ANION GAP 9 mmol/L (7-16); AST,SGOT 15 U/L (5-34); BILIRUBIN,TOTAL 0.6 mg/dL (0.2-1.2); BLOOD UREA NITROGEN 10 mg/dL (10-20); CALCIUM 8.8 mg/dL (8.4-10.2); CARBON DIOXIDE 26 mmol/L (23-31); CHLORIDE 106 mmol/L (98-107); CREATININE, serum 0.67 mg/dL (0.57-1.11); GLUCOSE 148 mg/dL (70-99); POTASSIUM 4.2 mmol/L (3.5-4.5); SODIUM 141 mmol/L (136-145); TOTAL PROTEIN 7.1 gm/dL (6.2-8.1)
[2022-03-06 12:47] LABS: TROPONIN-I < 0.010 ng/mL (0.00-0.033)
[2022-03-06 15:55] VITALS: BP 166/80; PULSE 85
== END 2022-03-06 15:55 | disposition home or self-care (01) ==
LOC: COL.ER 11:58
PROVIDERS: Student in an Organized Health Care Education/Training Program
DX: R07.2 Precordial pain (principal)

== ENCOUNTER 2023-10-30 13:34 | Emergency (ER) | payer MEDICARE ==
[~2023-10-30] VITALS: Ht 149.9 cm; Wt 69.5 kg
[~2023-10-30 13:34] MED LIST changes: +ASPIRIN 81M81 MG/TA2 PO; +FLINTSTONES1 CTB PO; +MAG-OX 400400 MG/TAB PO; +MASON NATURAL1200 MG PO; +PRILOSEC 20MG20 MG PO; +VITAMIN D362.5 MCG PO
[2023-10-30 13:44] VITALS: TEMP 98
[2023-10-30 14:43] LABS: BASO # 0.1 K/mm3 (0.0-0.2); BASO % 0.6 % (0.0-2.0); EOS # 0.1 K/mm3 (0.0-0.7); EOS % 0.9 % (0.0-4.0); GRAN # 10.3 K/mm3 (1.4-6.5); GRAN % 80.7 % (42.2-75.2); LYMPH # 1.4 K/mm3 (1.2-3.4); LYMPH % 10.7 % (20.0-51.0); MEAN CELL VOLUME 90 fl (80.0-100.0); MEAN CORPUSCULAR HEMOGLOBIN 30 pg (27-31); MEAN CORPUSCULAR HGB CONC 33 g/dl (33.0-37.0); MEAN PLATELET VOLUME 9.5 fl (7.4-10.4); MONO # 0.9 K/mm3 (0.1-0.6); MONO % 6.8 % (1.7-9.3); PLATELET COUNT 294 K/mm3 (130-400); RED BLOOD COUNT 3.68 M/mm3 (4.10-5.30); REDCELL DISTRIBUTION WIDTH-CV 12.9 % (11.5-14.5)
[2023-10-30] MEDS ORDERED: Acetaminophen 500 MG TAB PO ONE (14:45)
[2023-10-30 15:00] LABS: BILIRUBIN,TOTAL 0.3 mg/dL (0.2-1.2); CALCIUM 9.3 mg/dL (8.4-10.2); CREATININE, serum 1.11 mg/dL (0.57-1.11); TOTAL PROTEIN 7.6 gm/dL (6.2-8.1)
[2023-10-30 15:02] LABS: TROPONIN-I 0.018 ng/mL (0.00-0.033)
[2023-10-30] MEDS ORDERED: Morphine 4 MG/ML VIAL IV ONE (15:45)
[2023-10-30] MEDS ORDERED: NS 1,000 ML IV ONE (15:45)
[2023-10-30] MEDS ORDERED: PERCOCET 325 MG1 TA2 PO (16:37)
[2023-10-30 16:56] VITALS: BP 156/79; PULSE 102
== END 2023-10-30 17:02 | disposition home or self-care (01) ==
LOC: COL.ER 13:34
PROVIDERS: Emergency Medicine
DX: R07.9 Chest pain, unspecified (principal); Z95.1 Presence of aortocoronary bypass graft; Z79.899 Other long term (current) drug therapy
CPT/HCPCS: J2270; J7030

== ENCOUNTER 2023-11-08 19:02 | Observation (INO) | payer MEDICARE ==
[~2023-11-08] VITALS: Ht 149.9 cm; Wt 71.0 kg
[2023-11-08 19:46] LABS: BASO # 0.1 K/mm3 (0.0-0.2); BASO % 0.5 % (0.0-2.0); EOS # 0.2 K/mm3 (0.0-0.7); EOS % 1.5 % (0.0-4.0); GRAN # 9.1 K/mm3 (1.4-6.5); GRAN % 70.2 % (42.2-75.2); LYMPH # 2.5 K/mm3 (1.2-3.4); LYMPH % 19.5 % (20.0-51.0); MEAN CELL VOLUME 89 fl (80.0-100.0); MEAN CORPUSCULAR HEMOGLOBIN 29 pg (27-31); MEAN CORPUSCULAR HGB CONC 33 g/dl (33.0-37.0); MEAN PLATELET VOLUME 8.7 fl (7.4-10.4); MONO % 7.8 % (1.7-9.3); PLATELET COUNT 436 K/mm3 (130-400); RED BLOOD COUNT 3.42 M/mm3 (4.10-5.30); REDCELL DISTRIBUTION WIDTH-CV 12.7 % (11.5-14.5)
[2023-11-08 19:51] LABS: HEMATOCRIT 30.5 % (37.0-47.0)
[2023-11-08 19:57] LABS: ALANINE AMINOTRANSFERASE 15 U/L (0-55); ALBUMIN 3.5 gm/dL (3.4-4.8); ALKALINE PHOSPHATASE 113 U/L (40-150); ANION GAP 13 mmol/L (7-16); AST,SGOT 16 U/L (5-34); BILIRUBIN,TOTAL 0.4 mg/dL (0.2-1.2); BLOOD UREA NITROGEN 16 mg/dL (10-20); CALCIUM 9.3 mg/dL (8.4-10.2); CARBON DIOXIDE 21 mmol/L (23-31); CHLORIDE 103 mmol/L (98-107); CREATININE, serum 0.98 mg/dL (0.57-1.11); GLUCOSE 126 mg/dL (70-99); POTASSIUM 4.6 mmol/L (3.5-4.5); SODIUM 137 mmol/L (136-145); TOTAL PROTEIN 7.5 gm/dL (6.2-8.1)
[2023-11-08 20:08] LABS: TROPONIN-I < 0.010 ng/mL (0.00-0.033)
[2023-11-08] MEDS ORDERED: Iohexol 300 - 100 ML VIAL IV ONE (22:05)
[2023-11-08] MEDS ORDERED: NS 74 ML IV ONE (22:06)
[2023-11-09] VITALS (669 sets, daily range): BP systolic 116–169; BP diastolic 59–83; PULSE 86–92; TEMP 97.4–98.5; O2SAT 88–99
[2023-11-09] MEDS ORDERED: Morphine 4 MG/ML VIAL IV ONE (00:30)
[2023-11-09] MEDS ORDERED: CORDARONE200 MG/TAB PO (00:50)
[2023-11-09] MEDS ORDERED: LASIX 20MG TABL20 MG PO (00:50)
[2023-11-09] MEDS ORDERED: GAS-X ULTRA ST180 MG PO (00:54)
[2023-11-09] MEDS ORDERED: COLACE 100100 MG/CAP PO (00:55)
[2023-11-09] MEDS ORDERED: TYLENOL 500MG500 MG PO (00:55)
[2023-11-09] MEDS ORDERED: TOPROL XL 50MG50 MG PO (00:58)
[2023-11-09] MEDS ORDERED: SENOKOT8.6 MG PO (00:59)
[2023-11-09] MEDS ORDERED: Nitroglycerin 2% Topical Oint 1 GM UD TD ONE (01:00)
[2023-11-09] MEDS ORDERED: BIOTENE DRY M1000 ML (01:00)
[2023-11-09] MEDS ORDERED: REFRESH PLUS 00.4 M1 OP (01:01)
[2023-11-09] MEDS ORDERED: TURMERIC500 MG PO (01:03)
[2023-11-09] MEDS ORDERED: Nitroglycerin/D5W 250 ML IV SCH (01:15)
[2023-11-09] MEDS ORDERED: Acetaminophen 325 MG TAB PO PRN (01:15)
--- NOTE | 2023-11-09 01:56 | NUR ---
RECEIVED TRANSFER REPORT FROM YOSI BURTON.
--- NOTE | 2023-11-09 02:14 | NUR ---
PATIENT TRANSFERRED FROM THE ED WITH ONE INT SITE IN PLACE WITH NITROGLYCERIN GTT RUNNING. PATIENT HAS COMPLAINTS OF INCREASING CHEST PAIN. PATIENT AMBULATES WELL AND IS VOIDING. PATIENT IS HYPERTENSIVE BUT OTHERWISE VITALS ARE STABLE. PATIENT IS ALERT AND ORIENTED. PATIENT HAS TWO HEALING INCISIONS FROM A MONTH AGO, ONE ON HER LEFT MEDIAL UPPER CERVANTES AND ONE IN THE MIDDLE OF HER CHEST. ORIENTATION TO ROOM AND ADMISSION ASSESSMENT COMPLETE. CALL LIGHT WITHIN REACH.
--- NOTE | 2023-11-09 03:14 | NUR ---
SPOKE TO EVON GRANDE REGARDING PATIENT'S PAIN. ORDERS RECEIVED.
[2023-11-09] MEDS ORDERED: Morphine 4 MG/ML VIAL IV PRN (03:15)
[2023-11-09] MEDS ORDERED: Latanoprost 0.005% Ophth Soln 2.5 ML BOTTLE OP SCH (03:35)
[2023-11-09] MEDS ORDERED: VITAMIN D31000 I1 PO (03:37)
[2023-11-09] MEDS ORDERED: Ezetimibe 10 MG TAB PO SCH (03:39)
[2023-11-09] MEDS ORDERED: SENNA-LAX8.6 MG PO (03:39)
[2023-11-09] MEDS ORDERED: Sodium Chloride 0.65% Nasal Irrig 45 ML BOTTLE NS PRN (03:45)
[2023-11-09] MEDS ORDERED: BIOTENE MOUTHWASH PO SCH (04:30)
[2023-11-09] MEDS ORDERED: Patient's Own Medication Item NS PRN (05:00)
[2023-11-09] MEDS ORDERED: diphenhydrAMINE 50 MG/ML 1 ML VIAL IV ONE (05:30)
[2023-11-09 06:09] LABS: BASO # 0.1 K/mm3 (0.0-0.2); BASO % 0.5 % (0.0-2.0); EOS # 0.2 K/mm3 (0.0-0.7); EOS % 1.6 % (0.0-4.0); GRAN # 6.6 K/mm3 (1.4-6.5); GRAN % 69.1 % (42.2-75.2); LYMPH % 20.9 % (20.0-51.0); MEAN CELL VOLUME 89 fl (80.0-100.0); MEAN CORPUSCULAR HGB CONC 33 g/dl (33.0-37.0); MEAN PLATELET VOLUME 8.9 fl (7.4-10.4); MONO # 0.7 K/mm3 (0.1-0.6); MONO % 7.5 % (1.7-9.3); PLATELET COUNT 407 K/mm3 (130-400); RED BLOOD COUNT 3.31 M/mm3 (4.10-5.30); REDCELL DISTRIBUTION WIDTH-CV 12.8 % (11.5-14.5)
[2023-11-09 06:20] LABS: HEMOGLOBIN 9.7 g/dl (12.5-16.0); MEAN CORPUSCULAR HEMOGLOBIN 29 pg (27-31)
[2023-11-09 06:21] LABS: HEMATOCRIT 29.5 % (37.0-47.0)
[2023-11-09 06:31] LABS: CALCIUM 9.3 mg/dL (8.4-10.2); CREATININE, serum 0.82 mg/dL (0.57-1.11); POTASSIUM 4.2 mmol/L (3.5-4.5)
[2023-11-09] MEDS ORDERED: Omeprazole 20 MG **** subs to Pantoprazole 40 MG PO SCH (07:00)
[2023-11-09] MEDS ORDERED: Carboxymethylcellulose PF Ophth 0.4 ML DROPPERETTE OP SCH (09:00)
[2023-11-09] MEDS ORDERED: Cholecalciferol (Vit D3) 1000 Units TAB PO SCH (09:00)
[2023-11-09] MEDS ORDERED: Patient's Own Medication Item OP SCH (09:00)
[2023-11-09] MEDS ORDERED: Furosemide 20 MG TAB PO SCH (09:00)
[2023-11-09] MEDS ORDERED: Magnesium Oxide 400 MG TAB PO SCH (09:00)
[2023-11-09] MEDS ORDERED: Docusate Sodium 100 MG CAP PO SCH (09:00)
[2023-11-09] MEDS ORDERED: Amiodarone 200 MG TAB PO SCH (09:00)
[2023-11-09] MEDS ORDERED: Pantoprazole 40 MG in NS 10 ML IV SCH (10:00)
[2023-11-09 10:25] LABS: COLLECTION METHOD CLEAN CATCH
[2023-11-09 10:58] LABS: SQUAMOUS EPITHELIAL None Seen /hpf (0-10); URINE APPEARANCE Clear (CLEAR/HAZY); URINE BLOOD Negative (NEGATIVE); URINE COLOR Yellow (YELLOW); URINE GLUCOSE Negative (NEGATIVE); URINE KETONE Negative (NEGATIVE); URINE NITRATE Negative (NEGATIVE); URINE PROTEIN(semi-quant) Negative (NEGATIVE); URINE RBC None Seen /hpf (0-2); URINE UROBILINOGEN 0.2 E.U/dL (0.2-1.0)
[2023-11-09] MEDS ORDERED: Sucralfate 1 G TAB PO SCH (11:30)
--- NOTE | 2023-11-09 11:53 | NUR ---
SW met with patient to complete intake. Patient states that she lives in [place] alone. Next of kin is daughter and DPOA/HC Juli Cardoso [phone]. Patient states that she is independent with ADLs, does not utilize DME, and no HH services at this time. PCP is Dr. Costello, and pharmacy is [facility]. Patient states she plans to return home up on dc. SW will continue to follow. DC plan: home
[2023-11-09] MEDS ORDERED: PROTONIX 40MG T40 MG PO (16:36)
[2023-11-09] MEDS ORDERED: CARAFATE 1GM1 G PO (16:36)
--- NOTE | 2023-11-09 17:27 | NUR ---
1650 NURSE TO NURSE REPORT GIVEN TO RECIEVING NURSE ON MEDICAL. PT GOING TO MEDICAL BED 357. PT TRANSFERED TO MEDICAL UNIT VIA WC. ALL BELONGINGS TAKEN WITH PT TO NEW ROOM. PT LEFT ICU UNIT AT 1705. PT CALL ANA LAURA, SHE IS AWARE OF PT STATUS UPDATE.
--- NOTE | 2023-11-09 17:30 | NUR ---
patient came from icu. patient alert and oriented x4. patient denies any pain at this time. reports previously having chest pain that radiated to her left arm/shoulder. patient on room air.VVS WNL. PATIENT HAS A MIDLINE CHEST PAIN FROM PREVOUS OPEN HEART SURGERY. INCISION INTACT AND HEALING. ALSO SOME SCABS ON LEFT LOWER EXTREMITY. CALL LIGHT WITHIN REACH. BED AT LOWEST POSTION.
--- NOTE | 2023-11-09 20:14 | NUR ---
spoke with OSVALDO Garcia about patients home medications-biotene mouthwash and eye drops. Okay for patient to have at bedside.
--- NOTE | 2023-11-09 20:36 | NUR ---
Patient c/o pain to left shoulder-states it is intermittent and feels like gas pain. Rating pain 3/10 on pain scale. States morphine doesnt really help but "the gas pills do." Mylicon is only ordered daily-spoke with Roberta Garcia and new orders received and initiated. Will monitor.
[2023-11-09] MEDS ORDERED: Patient's Own Medication Item PO SCH (21:00)
[2023-11-10] VITALS (9 sets, daily range): BP systolic 127–150; BP diastolic 68–82; PULSE 73–86; TEMP 98–98.7
--- NOTE | 2023-11-10 00:06 | NUR ---
During chart review this nurse acciently DCd ECHO order for 11/10. Re-ordered at this time per previous order.
--- NOTE | 2023-11-10 00:34 | NUR ---
Patient resting eyes closed. No s/s of pain or discomfort noted. Will monitor.
--- NOTE | 2023-11-10 06:23 | NUR ---
Patient rested well this shift. Complained of pain x1 in left shoulder-described as "gas pain." Simethicone order changed to QID PRN and given with good results. TELE reporting SR. INTO to left/right wrist flush without difficulty. VS remained stable. Denies current needs. Call light in reach> Will monitor.
--- NOTE | 2023-11-10 06:58 | NUR ---
Bedside report given to YOSI Liz.
--- NOTE | 2023-11-10 10:22 | NUR ---
Initial visit; Patient thanked Functional Manager for looking in on her and offering encouragement and prayer. Functional Manager also offered God's blessings and wished her well.
--- NOTE | 2023-11-10 13:08 | NUR ---
Staff followed up with patient - recently started outpatient cardiac rehab. Reviewed s/s after session on Friday (11/07/23). Patient verbalized that she will call upon discharge from hospital and ready to return to Cardiac rehab. Staff reviewed upcoming apt with raman (11/19/23). Staff encouraged patient to reach out to staff if she had further questions or concerns. Jeffrey plunkett in attendance.
--- NOTE | 2023-11-10 17:51 | NUR ---
PATIENT DISCHARGE INSTRUCTIONS GIVEN. PATIENT IV REMOVED. PATIENT WILL CALL WHEN HER RIDE IS HERE TO BE ESCORTED OUT OF HOSPITAL. CALL LIGHT WITHIN REACH.
--- NOTE | 2023-11-10 18:30 | NUR ---
PATIENT ESCORTED OUT OF HOSPITAL. ACCOMPNIED BY DAUGHTER. PERSONAL MEDICATIONS RETURNED.
== END 2023-11-10 18:30 | disposition home or self-care (01) ==
LOC: COL.ER 19:02 → ICU 11-09 01:25 → MEDICAL 11-09 17:15
PROVIDERS: Nurse Practitioner; Nurse Practitioner Family; ADMIT Internal Medicine
DX: R07.89 Other chest pain (principal); I25.10 Atherosclerotic heart disease of native coronary artery without angina pectoris; R65.10 Systemic inflammatory response syndrome (SIRS) of non-infectious origin without acute organ dysfunction; E87.5 Hyperkalemia; I08.0 Rheumatic disorders of both mitral and aortic valves; I10 Essential (primary) hypertension; E78.5 Hyperlipidemia, unspecified; D64.9 Anemia, unspecified; Z95.1 Presence of aortocoronary bypass graft; Z79.899 Other long term (current) drug therapy
CPT/HCPCS: C9113; G0378; J1200; J1650; J2270; J2305; Q9967

== ENCOUNTER → 2023-11-19 | Outpatient (RCR) | payer MEDICARE ==
[~2023-11-19] MED LIST changes: +BIOTENE DRY M1000 ML; +CARAFATE 1GM1 G PO; +CORDARONE200 MG/TAB PO; +GAS-X ULTRA ST180 MG PO; +LASIX 20MG TABL20 MG PO; +PROTONIX 40MG T40 MG PO; +REFRESH PLUS 00.4 M1 OP; +SENOKOT8.6 MG PO; +TURMERIC500 MG PO; +TYLENOL 500MG500 MG PO; +VITAMIN D31000 I1 PO
== END | disposition home or self-care (01) ==
LOC: COL.CR
DX: I25.810 Atherosclerosis of coronary artery bypass graft(s) without angina pectoris (principal); Z48.812 Encounter for surgical aftercare following surgery on the circulatory system; Z95.1 Presence of aortocoronary bypass graft

== ENCOUNTER 2024-01-14 12:14 | Outpatient (RCR) | payer MEDICARE | END 2024-01-18 | disposition home or self-care (01) | LOC: COL.CR | DX: Z48.812 Encounter for surgical aftercare following surgery on the circulatory system (principal); Z95.1 Presence of aortocoronary bypass graft ==